=== PATIENT | male | born 1955 | race Caucasian/White ===

== ENCOUNTER → 2016-10-21 | Outpatient (CLI) | payer OTHER ==
[~2016-10-21] VITALS: Ht 188 cm; Wt 80.7 kg
[~2016-10-21] MED LIST: ACIPHEX 20 MG T20 MG PO; TOPROL XL25 MG PO; XALATAN2.5 ML OPHTHALMIC; ZOCOR20 MG PO
--- NOTE | ~2016-10-21 | CATHLAB ---
[facility] [place] [address] INVASIVE PROCEDURE REPORT Name: ROSIE RUELAS JR Room #: REG [facility]#: [id number] Admission: 10/21/16 Attend Phys: Anand Squires Discharge: Date of : 59 Date of Service: 11/02/16 0940 Report #: [id number] THIS REPORT FOR: //name// CC: Marek Thakur DATE OF SERVICE: 10/21/2016 INDICATION: A 60-year-old male patient with chest pain and abnormal noninvasive evaluation. PROCEDURES: 1. Left heart catheterization. 2. Left and right coronary angiography. 3. Measurement of left ventricular end diastolic pressure. 4. Supervision of conscious sedation. CLINICAL APPLICATION CONSULTANT: Anand Thakur M.D. BRIEF DESCRIPTION OF PROCEDURE: After informed consent was obtained, the patient was brought to the cardiac catheterization laboratory in stable condition. The patient's right groin was prepped and draped in the usual sterile manner after which lidocaine was then instilled. Utilizing a modified Seldinger technique, the right femoral artery was then accessed. Under fluoroscopic visualization using selective coronary catheters, the right and left coronaries were opacified and visualized. The left ventriculogram was likewise imaged per standard protocol with EDP being measured. Subsequent to this, the sheath was removed, hemostasis achieved. The patient tolerated the procedure well. There were no complications. FINDINGS: 1. RHYTHM: The patient's rhythm was sinus throughout the entire procedure. 2. HEMODYNAMICS: A. Aortic pressure 112/69. B. Left ventricular end diastolic pressure is 15-20. 3. FLUOROSCOPY: Under fluoroscopic visualization, there was no significant calcific plaquing along the epicardial coronary arteries. There was likewise no significant plaquing along the valvular or intramyocardial structures of the heart. 4. ANGIOGRAPHY: This is a right coronary dominant system. A. Left main is of normal origin and caliber, has a 40% mid lesion, which is eccentric and is not flow limiting. B. Left anterior descending is a moderate caliber type 3 vessel which courses in the anterior interventricular sulcus giving rise to septal and diagonal branches, which are free of high-grade disease. continues in the anterior interventricular sulcus towards the apex without significant obstructive lesions [address] [address] INVASIVE PROCEDURE REPORT Name: ROSIE RUELAS JR Room #: [facility] [place]#: [id number] Admission: 10/21/16 Attend Phys: Anand Squires Discharge: Date of : 59 Date of Service: 11/02/16 0940 Report #: [id number] noted. C. Left circumflex is a moderate caliber vessel, which gives rise to an early marginal branch, free of high-grade disease. It then courses posteriorly and laterally with a terminal marginal branch free of high-grade disease. D. Right coronary artery is a moderate caliber dominant vessel without significant obstructive lesions noted as it courses to the crux of the heart giving rise to posterior descending artery and posterior circulation. IMPRESSION: 1. Coronary artery disease, mild, single vessel, nonobstructive. 2. Normal hemodynamics. 3. In view of the presence of nonobstructive coronary artery disease, risk factor modification is emphasized. <ELECTRONICALLY SIGNED> By: Anand Thakur MD 11/03/16 2113 0940 1926 Anand Thakur MD /nt
[2016-10-21 09:07] LABS: HEMATOCRIT 46.3 % (42.0-52.0); MCH 29.9 pg (26.0-34.0); MCHC 34.6 g/dL (28.0-37.0); MCV 86.5 fL (80.0-100.0); RBC 5.36 mil/uL (4.50-6.00); RDW 13.5 % (10.5-14.5); WBC 4.5 thou/uL (4.0-11.0)
[2016-10-21 09:15] VITALS: BP 123/76
[2016-10-21 09:15] LABS: CALCIUM 9.3 mg/dL (8.5-10.1); CREATININE 0.9 mg/dL (0.7-1.3); POTASSIUM 4.1 mmol/L (3.5-5.1)
== END ==
LOC: CATH 08:30 → CV 08:30
PROVIDERS: Internal Medicine
DX: I25.10 Atherosclerotic heart disease of native coronary artery without angina pectoris (principal)